=== PATIENT | female | born 1990 | race Asian ===

== ENCOUNTER 2018-06-30 15:30 | Outpatient (CLI) | payer OTHER ==
[2018-06-30 16:00] LABS: BASOPHILS % (AUTO) 0.9 % (0.0-2.0); EOSINOPHILS # (AUTO) 0.1 K/uL (0.0-0.4); EOSINOPHILS % (AUTO) 1.7 % (0.0-4.0); HEMATOCRIT 44.5 % (36-48); HEMOGLOBIN 14.1 g/dL (12.0-16.0); LYMPHOCYTES % (AUTO) 40.3 % (20.5-51.5); MEAN CORPUSCULAR HEMOGLOBIN 29 pg (27-31); MEAN CORPUSCULAR HGB CONC 32 % (32-36); MEAN CORPUSCULAR VOLUME 92 fL (79.0-98.0); MONOCYTES # (AUTO) 0.3 K/uL (0.0-1.0); NEUTROPHILS # (AUTO) 2.6 K/uL (1.8-7.7); NEUTROPHILS % (AUTO) 50.1 % (40.0-70.0); PLATELET COUNT (AUTO) 333 K/uL (130-430); RED BLOOD CELL COUNT(AUTO) 4.85 MIL/uL (4.2-6.2); RED CELL DISTRIBUTION WIDTH 13.2 % (9.0-15.0)
[2018-06-30 16:32] LABS: ALBUMIN 4.2 g/dL (3.4-4.8); CALCIUM 9.5 mg/dL (8.4-11.0); CREATININE 0.75 mg/dL (0.55-1.30); POTASSIUM 4.1 mmol/L (3.5-5.1); THYROID STIMULATING HORMONE 0.2 uIu/mL (0.34-4.82); TOTAL BILIRUBIN 0.3 mg/dL (0.0-1.0); URIC ACID 5.1 mg/dL (2.4-7.0)
[2018-07-01 04:18] LABS: HEMOGLOBIN A1C 5.3 % (4.8-5.6)
== END 2018-06-30 19:24 | disposition home or self-care (01) ==
LOC: SLB 15:30
PROVIDERS: ATTEND Internal Medicine
DX: Z00.00 Encounter for general adult medical examination without abnormal findings (principal)
CPT/HCPCS: 36415; 80053; 80061; 82306; 82607; 83036; 84443-TC; 84550-TC; 85025

== ENCOUNTER 2019-06-30 19:30 | Outpatient (CLI) | payer OTHER ==
[2019-06-30 20:23] LABS: BASOPHILS % (AUTO) 0.6 % (0.0-2.0); EOSINOPHILS # (AUTO) 0.1 K/uL (0.0-0.4); EOSINOPHILS % (AUTO) 1.8 % (0.0-4.0); HEMATOCRIT 41.7 % (36-48); HEMOGLOBIN 14.2 g/dL (12.0-16.0); LYMPHOCYTES # (AUTO) 2.6 K/uL (1.0-5.5); LYMPHOCYTES % (AUTO) 38.6 % (20.5-51.5); MEAN CORPUSCULAR HEMOGLOBIN 31 pg (27-31); MEAN CORPUSCULAR HGB CONC 34 % (32-36); MEAN CORPUSCULAR VOLUME 92 fL (79.0-98.0); MONOCYTES # (AUTO) 0.4 K/uL (0.0-1.0); MONOCYTES % (AUTO) 6.6 % (1.7-9.3); NEUTROPHILS # (AUTO) 3.6 K/uL (1.8-7.7); NEUTROPHILS % (AUTO) 52.4 % (40.0-70.0); PLATELET COUNT (AUTO) 259 K/uL (130-430); RED BLOOD CELL COUNT(AUTO) 4.53 MIL/uL (4.2-6.2); RED CELL DISTRIBUTION WIDTH 14.2 % (9.0-15.0); WHITE BLOOD COUNT (AUTO) 6.8 K/uL (4.8-10.8)
[2019-06-30 20:47] LABS: ALBUMIN 4.2 g/dL (3.4-4.8); CREATININE 0.93 mg/dL (0.55-1.30); THYROID STIMULATING HORMONE 1.05 uIu/mL (0.36-3.74); TOTAL BILIRUBIN 0.4 mg/dL (0.0-1.0)
[2019-06-30 21:02] LABS: URIC ACID 5.9 mg/dL (2.4-7.0)
[2019-07-02 08:09] LABS: HEMOGLOBIN A1C 5.2 % (4.8-5.6)
== END 2019-06-30 20:44 | disposition home or self-care (01) ==
LOC: SLB 19:30
PROVIDERS: ATTEND Internal Medicine
DX: Z00.00 Encounter for general adult medical examination without abnormal findings (principal)
CPT/HCPCS: 36415; 80053; 80061; 82306; 82607; 83036; 84443-TC; 84550-TC; 85025

== ENCOUNTER 2019-07-30 05:30 | Emergency (ER) | payer OTHER ==
[~2019-07-30] VITALS: Ht 157.5 cm; Wt 66.7 kg
--- NOTE | 2019-07-30 05:30 | NUR ---
Pt placed to ER bed 07, to gown. Pt c/o cough, sore throat, intermittent fever and loss of appetite x 6 days. Pt also states that she has been coughing up thick green sputum. Denies c/o C/P or SOB.
[2019-07-30 05:35] VITALS: BP_SYST 130
--- NOTE | 2019-07-30 05:45 | NUR ---
Dr. Niño at bedside.
--- NOTE | 2019-07-30 06:00 | NUR ---
Pt to X-ray.
--- NOTE | 2019-07-30 06:03 | NUR ---
Pt returns from X-ray.
[2019-07-30 06:53] LABS: STREPTOCOCCUS A SCREEN (RAPID) NEGATIVE (NEGATIVE)
[2019-07-30 07:01] LABS: INFLUENZA A&B ANTIGEN SCREEN NEGATIVE FOR A & B (NEGATIVE)
[2019-07-30 07:08] VITALS: BP_SYST 128
--- NOTE | 2019-07-30 07:08 | NUR ---
Patient given written and verbal discharge instructions and verbalizes understanding. ER MD discussed with patient the results and treatment provided. Patient in stable condition. ID arm band removed. Rx of Prednisone and Promethazine DM given. Patient educated on pain management and to follow up with PMD. Pain Scale 0/10. Opportunity for questions provided and answered. Medication side effect fact sheet provided.
== END 2019-07-30 07:08 | disposition home or self-care (01) ==
LOC: SED 05:30
DX: R05 Cough (principal)
CPT/HCPCS: 36415; 71045; 86403; 86710; 87081; 99284